=== PATIENT | female | born 1975 | race Caucasian/White ===

== ENCOUNTER 2016-10-24 20:35 | Emergency (ER) | payer OTHER ==
--- NOTE | 2016-10-24 22:23 | ED ORDER SUMMARY ---
..... Patient: ETIENNE DENG OrderSheet [facility] VisitID: [id number] [address] [place] [address] 41y, F Registration Date/Time: 10/24/2016 ORDER SHEET Weight: 104.3 kg (stated) Allergies: Ambien, Vicodin GENERAL ORDERS: Toe Left Urgent (21:38 10/24/2016 EKoroleva P.A.-C) (Ack 21:39 LMuller) (21:54 MCampbell) POC Glucose (21:42 10/24/2016 EKoroleva P.A.-C) (Ack 21:42 JQuivey R.N.) (22:21 JQuivey R.N.) Post-op Shoe (22:09 10/24/2016 EKoroleva P.A.-C) (22:38 JQuivey R.N.) MEDICATION ORDERS: Insulin Reg Subcut 12 units (HIGH ALERT MEDICATION, NOW) (22:09 10/24/2016 EKoroleva P.A.-C) (Ack 22:24 JQuivey R.N.) (Cancelled: Physician Order22:28 JQuivey R.N.) HumaLOG Subcut 12 units (NOW) (22:29 10/24/2016 JQuivey R.N. verbal order read back to EKoroleva P.A.-C) (Ack 22:29 JQuivey R.N.) (22:35 JQuivey R.N.) IV FLUIDS: ORDER SHEET NOTES: [Electronically signed by Aida Velasquez P.A.-C (23:20 10/24/2016)] [Electronically signed by Reagan Lopez R.N. (01:16 10/25/2016)] [Electronically locked/signed by Reagan Lopez R.N. (01:16 10/25/2016)]
--- NOTE | 2016-10-24 22:23 | ED NURSING NOTES ---
Clinical Report - Nurses [facility] [address] [place] [address] 10/24/2016 20:35 [id number] Triage time 21:25. Acuity: LEVEL 4. Chief Complaint: INJURY TO THE LEFT GREAT TOE. 21:30. Alert. SEPSIS SCREEN: Sepsis Screen. Negative (no infection suspected/documented). BANDAR COMA SCORE: [place] Coma Scale: 15- eyes open spontaneously (4); best verbal response- oriented x 4 (5); best motor response- obeys commands (6). --21:30 Reagan Lopez R.N. 21:25 10/24/16. BP: 118/84. HR: 91. RR: 17. O2 saturation: 99% on room air. Temp: 98.9 F (oral). Pain level now: 04/09. --21:30 Reagan Lopez R.N. Weight: 104.3 kg stated. Height/Length: 69 inches Per Patient. BMI: 34. --21:29 Reagan Lopez R.N. Medications Humalog Subcutaneous (sliding scale). Lantus Subcutaneous 30units bid . Lipitor Oral, daily. Lyrica Oral (Capsule 100 mg) 2 capsules, daily. Metoprolol Tartrate Oral 50 mg, bid . Warfarin Sodium Oral (Tablet 5 mg) 12.5mg s/t/th 15mg on s//w/f, daily. Zoloft Oral 100 mg, daily. --21:28 Reagan Lopez R.N. Medication/allergy information source: the patient. --21:30 Reagan Lopez R.N. Allergies Ambien. Vicodin. --21:28 Reagan Lopez R.N. History Arrived by private vehicle. Historian: patient. Unaccompanied. Primary physician ([place]). This occurred (6 hours ago). Occurred (Work place). Mechanism of injury: (Stubbed toe). She has had trouble walking. 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 PAST MEDICAL HX: Tetanus status: up-to-date. Immunizations: up-to-date. Last normal menstrual period- 3 days ago. SOCIAL HX: Never smoker. No alcohol use or drug use. No infectious disease exposure. ABUSE ASSESSMENT: No report of abuse. FALL RISK ASSESSMENT: Fall risk assessment completed. No fall risk identified. NUTRITIONAL RISK ASSESSMENT: The nutritional risk assessment revealed no deficiencies. FUNCTIONAL ASSESSMENT: Functional assessment: no impairments noted. LEARNING NEEDS ASSESSMENT: The learning needs assessment revealed no barriers. SKIN INTEGRITY ASSESSMENT: Skin integrity risk assessment completed. No skin integrity risk identified. --21:30 Reagan Lopez R.N. PROBLEMS: Ingrown Toenail. Hearing Loss. Tinnitus. Halter Monitor . Animal Bite. Sty. Dental Caries. Methicillin resistant staphylococcus aureus carrier. Hypertension. Hyperglycemia. Pedal Edema. Abscess. Tendonitis. Acute Pain. Factor V Deficiency. Knee Injury. Tetanus Status. URI. DVT - Deep Venous Thrombosis. Factor Deficiency. Migraine Headache. Diabetes Mellitus. --21:29 Reagan Lopez R.N. ADDITIONAL SURGERIES: Knee Surgery. --21:29 Reagan Lopez R.N. Interventions ID band on patient. To treatment room. --21:30 Reagan Lopez R.N. PHYSICAL ASSESSMENT 21:31. Ambulatory to room. GENERAL / NEURO / PSYCH: Oriented X 4. Alert. EXTREMITIES: Extremity pulses are within normal limits. Neuro-vascular status intact to the extremity. SKIN: Skin intact. Skin is warm and dry. --21:31 Reagan Lopez R.N. NURSING PROGRESS NOTES 21:31. Two patient identifiers checked. Call light placed in reach. Bed placed in lowest position. Brakes of bed on. Patient ready for evaluation- chart flagged. --21:31 Reagan Lopez R.N. 21:44. Patient transported to radiology by stretcher with tech. --21:47 Reagan Lopez R.N. Point of care testing: performed by [employer]. Glucose: 357. Result shown to the PA. --21:57 Alli Aden ER Warp Dyeing Vat Tender <<YADIRA ENTRY-- 22:35 10/24/2016 HUMALOG Subcutaneous 12 unit given. Given in the right abdomen. --22:35 Reagan Lopez R.N. --END STRIKE>> Correction. --22:38 Reagan Lopez R.N. Splint applied by tech. Distal pulses intact, sensation intact and motor within normal limits (ANGIE TAPE BIG, AND NEXT TOE). --22:35 Alli Aden, ER Warp Dyeing Vat Tender ( ORTHO SHOES). --22:36 Alli Aden, ER Warp Dyeing Vat Tender 22:35 10/24/2016 HUMALOG Subcutaneous 12 unit given. Given in the right abdomen. (dose verified by Reagan ENRIQUE). --22:38 Reagan Lopez R.N. 22:34. The patient is calm and resting quietly. GENERAL / NEURO / PSYCH: Alert. Oriented X 4. RESPIRATORY: No respiratory distress. SKIN: Skin is warm and dry. --:38 Reagan Lopez R.N. DISPOSITION / DISCHARGE Departure time: :38. Condition at departure: stable. No learning barriers present. Discharge instructions provided and reviewed with the patient. Patient verbalized understanding. Written instructions provided in [place]. The patient was discharged home and unaccompanied at time of discharge. She left the Emergency Department ambulatory and via private vehicle. Patient driving. --22:38 Reagan Lopez R.N. Locked/Released at 10/25/2016 1:16 by Reagan Lopez R.N.
--- NOTE | 2016-10-24 22:23 | ED CLINICAL REPORT ---
Clinical Report - Physicians/Mid Levels [facility] [address] [place] [address] 10/24/2016 20:35 [id number] Time Seen: 21:40 Oct 24 2016. Arrived- By private vehicle. Historian- patient. HISTORY OF PRESENT ILLNESS Chief Complaint: Injury to the left great toe. 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 The patient sustained a direct blow. Patient is experiencing moderate pain. Patient denies injury to the head or neck. (while wearing shoes stubbed foot/ great toe into curb. No prior injury to the area.). REVIEW OF SYSTEMS The patient sustained a laceration. She complains of pain on weight bearing. All systems otherwise negative, except as recorded above. PAST HISTORY Problems: Myofascial Strain. Contusion. Ingrown Toenail. Fall. Hearing Loss. Tinnitus. Halter Monitor . Sprain. Sty. Vomiting. Dental Caries. Hypertension. Hyperglycemia. Pedal Edema. Abscess. Tendonitis. Acute Pain. Factor V Deficiency. Knee Injury. Tetanus Status. URI. DVT - Deep Venous Thrombosis. Factor Deficiency. Migraine Headache. Diabetes Mellitus. Immunizations. LNMP - Last Normal Menstrual Period. Additional Surgeries: Knee Surgery. Medications: Humalog Subcutaneous (sliding scale). Lantus Subcutaneous 30units bid . Lipitor Oral, daily. Lyrica Oral (Capsule 100 mg) 2 capsules, daily. Metoprolol Tartrate Oral 50 mg, bid . Warfarin Sodium Oral (Tablet 5 mg) 12.5mg s/t/th 15mg on s/m/w/f, daily. Zoloft Oral 100 mg, daily. Allergies: Ambien. Vicodin. SOCIAL HISTORY Never smoker. No alcohol use or drug use. ADDITIONAL NOTES The nursing notes have been reviewed. PHYSICAL EXAM Vital Signs: 10/24/2016 21:25 BP: 118/84. HR: 91. RR: 17. O2 saturation: 99%. Temp: 98.9 F. Pain level now: 7/10. Appearance: Alert. No acute distress. Head: Head atraumatic. No scalp tenderness. Eyes: Eyes normal inspection. Neck: Normal inspection. Neck supple. No decreased ROM in the neck. No vertebral tenderness. No carotid bruit. CVS: Normal heart rate and rhythm. Pulses normal. Respiratory: No respiratory distress. Breath sounds normal. Skin: Skin intact. Skin warm. Extremities: Left dorsal foot. No tenderness or swelling. Left great toe. (on plantar surface tenderness. no erythema/ abrasion, no nail bed injury). Neuro, Vascular and Tendons: Vascular status intact. Motor intact. Gait: Limping gait. Neuro: Oriented X 3. LABS, X-RAYS, AND EKG Lt Toes X-ray: (no signs of acute fx.). The X-rays were independently viewed by me. PROGRESS AND PROCEDURES Course of Care: patient here in the ER with left toe tenderness status post injury, no signs of trauma, no laceration/ ecchymosis. Pt very stable. Pt to f/u outpatient. Pop tape/ post op shoe. Glucose high, given insulin as per her sliding scale. Glucose: 357. NO nail bed injury, no signs of ulcerations, or concern for infectious process. NO abrasions. No erythema/ or warmth. Pt has oxycodone as listed on her SERG report. 10/24/2016 21:25 BP: 118/84. HR: 91. RR: 17. O2 saturation: 99%. Temp: 98.9 F. Pain level now: 7/10. Patient is stable. Physical exam findings are improved. Symptoms better. Patient/family counseled. Disposition: Discharged. CLINICAL IMPRESSION Contusion to the left great toe. Chronic, moderately well controlled type 2 diabetes with hyperglycemia and poly- neuropathy. INSTRUCTIONS Apply ice. Elevate affected areas above chest level. You may walk and bear weight as tolerated. (take y our own home meds including oxycodone as prescribed by Dr. ROE). Follow-up: Follow up with a specialist. Understanding of the discharge instructions verbalized by patient. Follow-up with: Jason Perry DPM, Podiatry, , [facility], [address] [place] [address], [address], [place] [address] Follow up. Call for the next available appointment. (Electronically signed by Aida Velasquez P.A.-C 10/24/2016 23:20)
--- NOTE | 2016-10-24 22:23 | ED ORDER SUMMARY ---
..... Patient: ETIENNE DENG OrderSheet [facility] VisitID: [id number] [address] [place] [address] 41y, F Registration Date/Time: 10/24/2016 ORDER SHEET Weight: 104.3 kg (stated) Allergies: Ambien, Vicodin GENERAL ORDERS: Toe Left Urgent (21:38 10/24/2016 EKoroleva P.A.-C) (Ack 21:39 LMuller) (21:54 MCampbell) POC Glucose (21:42 10/24/2016 EKoroleva P.A.-C) (Ack 21:42 JQuivey R.N.) (22:21 JQuivey R.N.) Post-op Shoe (22:09 10/24/2016 EKoroleva P.A.-C) (22:38 JQuivey R.N.) MEDICATION ORDERS: Insulin Reg Subcut 12 units (HIGH ALERT MEDICATION, NOW) (22:09 10/24/2016 EKoroleva P.A.-C) (Ack 22:24 JQuivey R.N.) (Cancelled: Physician Order22:28 JQuivey R.N.) HumaLOG Subcut 12 units (NOW) (22:29 10/24/2016 JQuivey R.N. verbal order read back to EKoroleva P.A.-C) (Ack 22:29 JQuivey R.N.) (22:35 JQuivey R.N.) IV FLUIDS: ORDER SHEET NOTES: [Electronically signed by Aida Velasquez P.A.-C (23:20 10/24/2016)] [Electronically signed by Reagan Lopez R.N. (01:16 10/25/2016)] [Electronically locked/signed by Reagan Lopez R.N. (01:16 10/25/2016)]
--- NOTE | 2016-10-24 22:23 | ED NURSING NOTES ---
Clinical Report - Nurses [facility] [address] [place] [address] 10/24/2016 20:35 [id number] Triage time 21:25. Acuity: LEVEL 4. Chief Complaint: INJURY TO THE LEFT GREAT TOE. 21:30. Alert. SEPSIS SCREEN: Sepsis Screen. Negative (no infection suspected/documented). BANDAR COMA SCORE: [place] Coma Scale: 15- eyes open spontaneously (4); best verbal response- oriented x 4 (5); best motor response- obeys commands (6). --21:30 [place] Lopez R.N. 21:25 10/24/16. BP: 118/84. HR: 91. RR: 17. O2 saturation: 99% on room air. Temp: 98.9 F (oral). Pain level now: 04/09. --21:30 Reagan Lopez R.N. Weight: 104.3 kg stated. Height/Length: 69 inches Per Patient. BMI: 34. --21:29 Reagan Lopez R.N. Medications Humalog Subcutaneous (sliding scale). Lantus Subcutaneous 30units bid . Lipitor Oral, daily. Lyrica Oral (Capsule 100 mg) 2 capsules, daily. Metoprolol Tartrate Oral 50 mg, bid . Warfarin Sodium Oral (Tablet 5 mg) 12.5mg s/t/th 15mg on s//w/f, daily. Zoloft Oral 100 mg, daily. --21:28 Reagan Lopez R.N. Medication/allergy information source: the patient. --21:30 Reagan Lopez R.N. Allergies Ambien. Vicodin. --21:28 Reagan Lopez R.N. History Arrived by private vehicle. Historian: patient. Unaccompanied. Primary physician ([place]). This occurred (6 hours ago). Occurred (Work place). Mechanism of injury: (Stubbed toe). She has had trouble walking. 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 PAST MEDICAL HX: Tetanus status: up-to-date. Immunizations: up-to-date. Last normal menstrual period- 3 days ago. SOCIAL HX: Never smoker. No alcohol use or drug use. No infectious disease exposure. ABUSE ASSESSMENT: No report of abuse. FALL RISK ASSESSMENT: Fall risk assessment completed. No fall risk identified. NUTRITIONAL RISK ASSESSMENT: The nutritional risk assessment revealed no deficiencies. FUNCTIONAL ASSESSMENT: Functional assessment: no impairments noted. LEARNING NEEDS ASSESSMENT: The learning needs assessment revealed no barriers. SKIN INTEGRITY ASSESSMENT: Skin integrity risk assessment completed. No skin integrity risk identified. --21:30 Reagan Lopez R.N. PROBLEMS: Ingrown Toenail. Hearing Loss. Tinnitus. Halter Monitor . Animal Bite. Sty. Dental Caries. Methicillin resistant staphylococcus aureus carrier. Hypertension. Hyperglycemia. Pedal Edema. Abscess. Tendonitis. Acute Pain. Factor V Deficiency. Knee Injury. Tetanus Status. URI. DVT - Deep Venous Thrombosis. Factor Deficiency. Migraine Headache. Diabetes Mellitus. --21:29 Reagan Lopez R.N. ADDITIONAL SURGERIES: Knee Surgery. --21:29 Reagan Lopez R.N. Interventions ID band on patient. To treatment room. --21:30 Reagan Lopez R.N. PHYSICAL ASSESSMENT 21:31. Ambulatory to room. GENERAL / NEURO / PSYCH: Oriented X 4. Alert. EXTREMITIES: Extremity pulses are within normal limits. Neuro-vascular status intact to the extremity. SKIN: Skin intact. Skin is warm and dry. --21:31 Reagan Lopez R.N. NURSING PROGRESS NOTES 21:31. Two patient identifiers checked. Call light placed in reach. Bed placed in lowest position. Brakes of bed on. Patient ready for evaluation- chart flagged. --21:31 Reagan Lopez R.N. 21:44. Patient transported to radiology by stretcher with tech. --21:47 Reagan Lopez R.N. Point of care testing: performed by hetras. Glucose: 357. Result shown to the PA. --21:57 Alli Aden ER Drag Down <<YADIRA ENTRY-- 22:35 10/24/2016 HUMALOG Subcutaneous 12 unit given. Given in the right abdomen. --22:35 Reagan Lopez R.N. --END STRIKE>> Correction. --22:38 Reagan Lopez R.N. Splint applied by tech. Distal pulses intact, sensation intact and motor within normal limits (ANGIE TAPE BIG, AND NEXT TOE). --22:35 Alli Aden, ER Drag Down ( ORTHO SHOES). --22:36 Alli Aden, ER Drag Down 22:35 10/24/2016 HUMALOG Subcutaneous 12 unit given. Given in the right abdomen. (dose verified by Reagan ENRIQUE). --22:38 Reagan Lopez R.N. 22:34. The patient is calm and resting quietly. GENERAL / NEURO / PSYCH: Alert. Oriented X 4. RESPIRATORY: No respiratory distress. SKIN: Skin is warm and dry. --:38 Reagan Lopez R.N. DISPOSITION / DISCHARGE Departure time: :38. Condition at departure: stable. No learning barriers present. Discharge instructions provided and reviewed with the patient. Patient verbalized understanding. Written instructions provided in [place]. The patient was discharged home and unaccompanied at time of discharge. She left the Emergency Department ambulatory and via private vehicle. Patient driving. --22:38 Reagan Lopez R.N. Locked/Released at 10/25/2016 1:16 by Reagan Lopez R.N.
--- NOTE | 2016-10-24 22:23 | ED CLINICAL REPORT ---
Clinical Report - Physicians/Mid Levels [facility] [address] [place] [address] 10/24/2016 20:35 [id number] Time Seen: 21:40 Oct 24 2016. Arrived- By private vehicle. Historian- patient. HISTORY OF PRESENT ILLNESS Chief Complaint: Injury to the left great toe. 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 The patient sustained a direct blow. Patient is experiencing moderate pain. Patient denies injury to the head or neck. (while wearing shoes stubbed foot/ great toe into curb. No prior injury to the area.). REVIEW OF SYSTEMS The patient sustained a laceration. She complains of pain on weight bearing. All systems otherwise negative, except as recorded above. PAST HISTORY Problems: Myofascial Strain. Contusion. Ingrown Toenail. Fall. Hearing Loss. Tinnitus. Halter Monitor . Sprain. Sty. Vomiting. Dental Caries. Hypertension. Hyperglycemia. Pedal Edema. Abscess. Tendonitis. Acute Pain. Factor V Deficiency. Knee Injury. Tetanus Status. URI. DVT - Deep Venous Thrombosis. Factor Deficiency. Migraine Headache. Diabetes Mellitus. Immunizations. LNMP - Last Normal Menstrual Period. Additional Surgeries: Knee Surgery. Medications: Humalog Subcutaneous (sliding scale). Lantus Subcutaneous 30units bid . Lipitor Oral, daily. Lyrica Oral (Capsule 100 mg) 2 capsules, daily. Metoprolol Tartrate Oral 50 mg, bid . Warfarin Sodium Oral (Tablet 5 mg) 12.5mg s/t/th 15mg on s/m/w/f, daily. Zoloft Oral 100 mg, daily. Allergies: Ambien. Vicodin. SOCIAL HISTORY Never smoker. No alcohol use or drug use. ADDITIONAL NOTES The nursing notes have been reviewed. PHYSICAL EXAM Vital Signs: 10/24/2016 21:25 BP: 118/84. HR: 91. RR: 17. O2 saturation: 99%. Temp: 98.9 F. Pain level now: 7/10. Appearance: Alert. No acute distress. Head: Head atraumatic. No scalp tenderness. Eyes: Eyes normal inspection. Neck: Normal inspection. Neck supple. No decreased ROM in the neck. No vertebral tenderness. No carotid bruit. CVS: Normal heart rate and rhythm. Pulses normal. Respiratory: No respiratory distress. Breath sounds normal. Skin: Skin intact. Skin warm. Extremities: Left dorsal foot. No tenderness or swelling. Left great toe. (on plantar surface tenderness. no erythema/ abrasion, no nail bed injury). Neuro, Vascular and Tendons: Vascular status intact. Motor intact. Gait: Limping gait. Neuro: Oriented X 3. LABS, X-RAYS, AND EKG Lt Toes X-ray: (no signs of acute fx.). The X-rays were independently viewed by me. PROGRESS AND PROCEDURES Course of Care: patient here in the ER with left toe tenderness status post injury, no signs of trauma, no laceration/ ecchymosis. Pt very stable. Pt to f/u outpatient. Pop tape/ post op shoe. Glucose high, given insulin as per her sliding scale. Glucose: 357. NO nail bed injury, no signs of ulcerations, or concern for infectious process. NO abrasions. No erythema/ or warmth. Pt has oxycodone as listed on her SERG report. 10/24/2016 21:25 BP: 118/84. HR: 91. RR: 17. O2 saturation: 99%. Temp: 98.9 F. Pain level now: 7/10. Patient is stable. Physical exam findings are improved. Symptoms better. Patient/family counseled. Disposition: Discharged. CLINICAL IMPRESSION Contusion to the left great toe. Chronic, moderately well controlled type 2 diabetes with hyperglycemia and poly- neuropathy. INSTRUCTIONS Apply ice. Elevate affected areas above chest level. You may walk and bear weight as tolerated. (take y our own home meds including oxycodone as prescribed by Dr. ROE). Follow-up: Follow up with a specialist. Understanding of the discharge instructions verbalized by patient. Follow-up with: Jason Perry DPM, Podiatry, , [facility], [address] [place] [address], [address], [place] [address] Follow up. Call for the next available appointment. (Electronically signed by Aida Velasquez P.A.-C 10/24/2016 23:20)
--- NOTE | 2016-10-25 00:17 | DIAGNOSTIC IMAGING REPORT ---
PROCEDURE: XR TOE - LEFT (great toe). INDICATION: TRAUMA/INJURY TECHNIQUE: Three views. COMPARISON: None. FINDINGS: Mild hallux valgus with moderate degenerative change of the left first metatarsal phalangeal joint. The rest of the osseous structures and joint spaces are normal. IMPRESSION: 1. Mild hallux valgus with moderate degenerative change of the left first metatarsal phalangeal joint. 2. Otherwise negative left great toe. No evidence of fracture.
--- NOTE | 2016-10-25 01:16 | ED DISCHARGE INSTRUCTIONS ---
Patient: ETIENNE DENG General Instructions [facility] VisitID: [id number] [place] [address] 41y, F Registration Date/Time: 10/24/2016 Contusion to the left great toe. Chronic, moderately well controlled type 2 diabetes with hyperglycemia and poly- neuropathy. INSTRUCTIONS Apply ice. Elevate affected areas above chest level. You may walk and bear weight as tolerated. (take y our own home meds including oxycodone as prescribed by Dr. ROE). Follow-up: Follow up with a specialist. Understanding of the discharge instructions verbalized by patient. Follow-up with: Jason Perry DPM, Podiatry, , [facility], [address] [place] [address], [address] [address] Follow up. Call for the next available appointment. ADDITIONAL INFORMATION Contusion: Foot You have a CONTUSION of your foot. This causes local pain, swelling and sometimes bruising. There are no broken bones. This injury may take from a few days to a few weeks to heal. Home Care: 1) Keep your LEG elevated to reduce pain and swelling. This is very important during the first 48 hours. If walking causes pain, stay off the injured leg until you can walk without pain. 2) If CRUTCHES have been advised, do not bear full weight on the injured leg until you can do so without pain. You may return to sports when you are able to hop and run on the injured leg without pain. 3) Make an ice pack (ice cubes in a plastic bag, wrapped in a towel) and apply for 20 minutes every 1-2 hours the first day. Continue this 3-4 times a day until the swelling goes down. 4) You may use acetaminophen (Tylenol) or ibuprofen (Motrin, Advil) to control pain, unless another pain medicine was prescribed. [ NOTE : If you have chronic liver or kidney disease or ever had a stomach ulcer or GI bleeding, talk with your doctor before using these medicines.] Follow Up with your doctor or this facility if you are not starting to improve within the next THREE days. [NOTE: If X-rays were taken, they will be reviewed by a radiologist. You will be notified of any new findings that may affect your care.] Get Prompt Medical Attention if any of the following occur: -- Pain or swelling increases -- Toes become cold, blue, numb or tingly -- Redness, warmth or drainage from the skin Diabetes with High Blood Sugar You have been treated for high blood sugar (hyperglycemia). This may be becauseof an infection or other illness;eating too many sweets or starches ; not taking enough insulin. Home care High blood sugar may cause symptoms that you can learn to recognize, such as these: If you feel like your blood sugar may be too high, measure it using a blood or urine test. If it is above your usual range, use the "sliding scale"rRegular insulin dose your doctor gave you to correct this. If no "sliding scale" orders were given, contact your doctor for further advice. If your blood sugar is over 300, and you can't reach your doctor, go to the hospital emergency room. Monitor and write down your blood sugars - and insulin dose, if you take insulin - atleast twice a day. Do this before breakfast and before dinner. Do this for the next 3 to 5 days. Follow-up care Follow up with your health care provderduring the next week to review your blood sugar records. You will find out if you need to adjust your dose of insulin or other medicine for blood sugar. When to seek medical care Get prompt medical attention if either of these occur: High blood sugar.Symptoms are frequent urination, feeling dizzy, thirst, headache, nausea or vomiting, abdominal pain, and drowsiness or loss of consciousness. Low blood sugar. Symptoms are fatigue, headache, shakes, excess sweating, hunger, anxiety, reduced vision, drowsiness, weakness, confusion or loss of consciousness, and seizure. You have been given the following additional information: Contusion, Foot Diabetic Hyperglycemia You may walk and bear weight as tolerated. (Electronically signed by Aida Velasquez P.A.-C 10/24/2016 23:20)
--- NOTE | 2016-10-25 01:16 | ED MED RECONCILIATION SUMMARY ---
Patient: ETIENNE DENG Medication Reconciliation Report [facility] VisitID: [id number] [address] [place] [address] 41y, F Registration Date/Time: 10/24/2016 Weight: 104.3 kg Height/Length: 69 in. BMI: 34.0 ALLERGIES: Ambien, Vicodin The patient's Home Medications are listed below: THE FOLLOWING MEDICATIONS NEED TO BE RECONCILED: Humalog Subcutaneous, sliding scale Lantus Subcutaneous 30units bid Lipitor Oral, daily Lyrica Oral (100 mg) 2 capsules, daily Metoprolol Tartrate Oral 50 mg, bid Warfarin Sodium Oral (5 mg) 12.5mg s//th 15mg on ///, daily Zoloft Oral 100 mg, daily The source(s) of the original Home Medication information: patient The following Medications were given to the patient in the Emergency Department: HUMALOG [SUBCUT] Subcutaneous 12 unit, administered: 10/24/2016 10:35:00 PM The following Medications were prescribed to the patient: None.
--- NOTE | 2016-10-25 01:16 | ED MAR SUMMARY ---
..... Medication Administration Record [facility] [address] [place] [address] Patient: ETIENNE DENG Visit ID: [id number] 41y, F Weight: 104.3 kg Height/Length: 69 in BMI: 34 ALLERGIES: Ambien, Vicodin Given 22:35 10/24/2016 Reagan Lopez RArelisNArelis Medication Administered: HUMALOG [SUBCUT], Dose: 12 unit Subcutaneous. Medication Ordered: HumaLOG Subcut 12 units (NOW).
--- NOTE | 2016-10-25 01:16 | ED MAR SUMMARY ---
..... Medication Administration Record [facility] [address] [place] [address] Patient: ETIENNE DENG Visit ID: [id number] 41y, F Weight: 104.3 kg Height/Length: 69 in BMI: 34 ALLERGIES: Ambien, Vicodin Given 22:35 10/24/2016 Reagan Lopez RArelisNArelis Medication Administered: HUMALOG [SUBCUT], Dose: 12 unit Subcutaneous. Medication Ordered: HumaLOG Subcut 12 units (NOW).
--- NOTE | 2016-10-25 01:16 | ED DISCHARGE INSTRUCTIONS ---
Patient: ETIENNE DENG General Instructions [facility] VisitID: [id number] [place] [address] 41y, F Registration Date/Time: 10/24/2016 Contusion to the left great toe. Chronic, moderately well controlled type 2 diabetes with hyperglycemia and poly- neuropathy. INSTRUCTIONS Apply ice. Elevate affected areas above chest level. You may walk and bear weight as tolerated. (take y our own home meds including oxycodone as prescribed by Dr. ROE). Follow-up: Follow up with a specialist. Understanding of the discharge instructions verbalized by patient. Follow-up with: Jason Perry DPM, Podiatry, , [facility], [address] [place] [address], [address] [address] Follow up. Call for the next available appointment. ADDITIONAL INFORMATION Contusion: Foot You have a CONTUSION of your foot. This causes local pain, swelling and sometimes bruising. There are no broken bones. This injury may take from a few days to a few weeks to heal. Home Care: 1) Keep your LEG elevated to reduce pain and swelling. This is very important during the first 48 hours. If walking causes pain, stay off the injured leg until you can walk without pain. 2) If CRUTCHES have been advised, do not bear full weight on the injured leg until you can do so without pain. You may return to sports when you are able to hop and run on the injured leg without pain. 3) Make an ice pack (ice cubes in a plastic bag, wrapped in a towel) and apply for 20 minutes every 1-2 hours the first day. Continue this 3-4 times a day until the swelling goes down. 4) You may use acetaminophen (Tylenol) or ibuprofen (Motrin, Advil) to control pain, unless another pain medicine was prescribed. [ NOTE : If you have chronic liver or kidney disease or ever had a stomach ulcer or GI bleeding, talk with your doctor before using these medicines.] Follow Up with your doctor or this facility if you are not starting to improve within the next THREE days. [NOTE: If X-rays were taken, they will be reviewed by a radiologist. You will be notified of any new findings that may affect your care.] Get Prompt Medical Attention if any of the following occur: -- Pain or swelling increases -- Toes become cold, blue, numb or tingly -- Redness, warmth or drainage from the skin Diabetes with High Blood Sugar You have been treated for high blood sugar (hyperglycemia). This may be becauseof an infection or other illness;eating too many sweets or starches ; not taking enough insulin. Home care High blood sugar may cause symptoms that you can learn to recognize, such as these: If you feel like your blood sugar may be too high, measure it using a blood or urine test. If it is above your usual range, use the "sliding scale"rRegular insulin dose your doctor gave you to correct this. If no "sliding scale" orders were given, contact your doctor for further advice. If your blood sugar is over 300, and you can't reach your doctor, go to the hospital emergency room. Monitor and write down your blood sugars - and insulin dose, if you take insulin - atleast twice a day. Do this before breakfast and before dinner. Do this for the next 3 to 5 days. Follow-up care Follow up with your health care provderduring the next week to review your blood sugar records. You will find out if you need to adjust your dose of insulin or other medicine for blood sugar. When to seek medical care Get prompt medical attention if either of these occur: High blood sugar.Symptoms are frequent urination, feeling dizzy, thirst, headache, nausea or vomiting, abdominal pain, and drowsiness or loss of consciousness. Low blood sugar. Symptoms are fatigue, headache, shakes, excess sweating, hunger, anxiety, reduced vision, drowsiness, weakness, confusion or loss of consciousness, and seizure. You have been given the following additional information: Contusion, Foot Diabetic Hyperglycemia You may walk and bear weight as tolerated. (Electronically signed by Aida Velasquez P.A.-C 10/24/2016 23:20)
--- NOTE | 2016-10-25 01:16 | ED MED RECONCILIATION SUMMARY ---
Patient: ETIENNE DENG Medication Reconciliation Report [facility] VisitID: [id number] [address] [place] [address] 41y, F Registration Date/Time: 10/24/2016 Weight: 104.3 kg Height/Length: 69 in. BMI: 34.0 ALLERGIES: Ambien, Vicodin The patient's Home Medications are listed below: THE FOLLOWING MEDICATIONS NEED TO BE RECONCILED: Humalog Subcutaneous, sliding scale Lantus Subcutaneous 30units bid Lipitor Oral, daily Lyrica Oral (100 mg) 2 capsules, daily Metoprolol Tartrate Oral 50 mg, bid Warfarin Sodium Oral (5 mg) 12.5mg s//th 15mg on ///, daily Zoloft Oral 100 mg, daily The source(s) of the original Home Medication information: patient The following Medications were given to the patient in the Emergency Department: HUMALOG [SUBCUT] Subcutaneous 12 unit, administered: 10/24/2016 10:35:00 PM The following Medications were prescribed to the patient: None.
== END 2016-10-24 22:36 | disposition home or self-care (01) ==
LOC: ED SRH 20:35
DX: S90.112A Contusion of left great toe without damage to nail, initial encounter (principal); E11.40 Type 2 diabetes mellitus with diabetic neuropathy, unspecified; I10 Essential (primary) hypertension; W22.09XA Striking against other stationary object, initial encounter; Y93.9 Activity, unspecified; Y92.009 Unspecified place in unspecified non-institutional (private) residence as the place of occurrence of the external cause; Y99.9 Unspecified external cause status; Z79.4 Long term (current) use of insulin